=== PATIENT | female | born 1950 ===

== ENCOUNTER → 2017-10-25 | Outpatient (CLI) | payer MEDICARE | END | disposition home or self-care (01) | LOC: DIABETIC 00:18 | PROVIDERS: ATTEND Specialist | DX: E11.65 Type 2 diabetes mellitus with hyperglycemia (principal); Z79.899 Other long term (current) drug therapy; Z88.0 Allergy status to penicillin; Z88.5 Allergy status to narcotic agent; Z88.7 Allergy status to serum and vaccine | CPT/HCPCS: G0108 ==

== ENCOUNTER 2018-01-21 00:13 | Outpatient (CLI) | payer MEDICARE | END 2018-01-21 23:59 | disposition home or self-care (01) | LOC: DIABETIC 00:13 | PROVIDERS: ATTEND Specialist | DX: E11.9 Type 2 diabetes mellitus without complications (principal) ==

== ENCOUNTER 2018-04-29 04:34 | Outpatient (CLI) | payer MEDICARE | END 2018-04-29 23:59 | disposition home or self-care (01) | LOC: DIABETIC 04:34 | PROVIDERS: ATTEND Specialist | DX: E10.65 Type 1 diabetes mellitus with hyperglycemia (principal); Z79.4 Long term (current) use of insulin; Z88.0 Allergy status to penicillin; Z88.5 Allergy status to narcotic agent; Z88.8 Allergy status to other drugs, medicaments and biological substances | CPT/HCPCS: G0108 ==

== ENCOUNTER 2018-07-25 03:23 | Outpatient (CLI) | payer MEDICARE | END 2018-07-25 23:59 | disposition home or self-care (01) | LOC: DIABETIC 03:23 | PROVIDERS: ATTEND Specialist | DX: E10.65 Type 1 diabetes mellitus with hyperglycemia (principal); Z79.4 Long term (current) use of insulin; Z88.0 Allergy status to penicillin; Z88.5 Allergy status to narcotic agent; Z88.7 Allergy status to serum and vaccine; Z88.6 Allergy status to analgesic agent | CPT/HCPCS: G0108 ==